=== PATIENT | female | born 1935 | race Asian ===

== ENCOUNTER 2019-06-16 13:31 | Inpatient (IN) | payer MEDICARE, BC ==
[~2019-06-16] VITALS: Ht 152.4 cm; Wt 51.3 kg
[~2019-06-16 13:31] MED LIST: AMIO200T PO; ESCI10TA PO; HYDR200T4 PO; PRED20TA PO; RIVA10TA PO
[2019-06-16] MEDS ORDERED: FENTANYL PF 100MCG/2ML AMPUL IV ONE (14:00)
[2019-06-16] MEDS ORDERED: FENTANYL PF 100MCG/2ML AMPUL ONE (14:09)
--- NOTE | 2019-06-16 14:16 | NUR ---
PT BROUGHT IN BY PARAMEDICS FOR TRIP AND FALL WHILE WALKING AND DRINKING FLUIDS. LEFT LEG NOTED TO BE BENT AND PAINFUL UPON TOUCH. LEFT LEG POSITIVE FOR SENSATION, MOTION , AND CIRCULATION. PT ON MONITOR PIV PLACED LABS DRAWN AND SAMPLES SENT TO LAB. WILL CONTINUE TO MONITOR.
[2019-06-16 14:18] LABS: BASOPHILS % (AUTO) 0.3 % (0.0-2.0); HEMATOCRIT 40 % (33-45); HEMOGLOBIN 13.4 g/dL (11.5-14.8); LYMPHOCYTES # (AUTO) 1.1 /CMM (0.8-4.8); LYMPHOCYTES % (AUTO) 9.8 % (20.0-44.0); MEAN CORPUSCULAR HGB CONC 33 g/dl (31.0-36.0); MEAN CORPUSCULAR VOLUME 94 fL (82-100); MONOCYTES # (AUTO) 0.6 /CMM (0.1-1.30); MONOCYTES % (AUTO) 5.3 % (2.0-12.0); NEUTROPHILS # (AUTO) 9.4 /CMM (1.8-8.9); NEUTROPHILS % (AUTO) 84.6 % (43.0-81.0); PLATELET COUNT (AUTO) 147 /CMM (150-450); RED BLOOD CELL COUNT(AUTO) 4.27 MIL/uL (4.0-5.2); WHITE BLOOD COUNT (AUTO) 11.1 K/uL (4.3-11.0)
[2019-06-16 14:25] LABS: CALCIUM, SERUM 8.7 mg/dL (8.5-10.1); CARBON DIOXIDE 26 mmol/L (21-32); CHLORIDE 107 mmol/L (98-107); CREATININE 0.8 mg/dL (0.6-1.3); GLUCOSE 182 mg/dL (74-106); POTASSIUM 3.7 mmol/L (3.5-5.1); SODIUM SERUM 143 mmol/L (136-145); UREA NITROGEN, BLOOD 15 mg/dL (7-18)
--- NOTE | 2019-06-16 14:35 | NUR ---
ORTHO MEDICAL RECORD CODER PAGED
[2019-06-16] MEDS ORDERED: ATOR10TA PO (14:39)
[2019-06-16] MEDS ORDERED: AMLO-555 PO (14:39)
[2019-06-16] MEDS ORDERED: RALO60TA14 PO (14:39)
[2019-06-16] MEDS ORDERED: SERT25TA5 PO (14:39)
--- NOTE | 2019-06-16 15:47 | NUR ---
RECIEVED BED 312-1
--- NOTE | 2019-06-16 15:53 | NUR ---
PT ADMITTED TO ROOM 312-1 MED/SURG UNDER BLAKE GROSS RN REPORT GIVEN TO SURINDER.
--- NOTE | 2019-06-16 16:15 | NUR ---
ADMISSION NOTE PT BROUGHT UP VIA GURNEY AT THIS TIME, A/O X3 ALBANIAN SPEAKING, BREATHING EVEN AND UNLABORED ON RA, NO S/S OF ANY DISTRESS OR PAIN AT THIS TIME. RIGHT WRIST GAUGE 20 IS PATENT AND INTACT, CAMPBELL IN PLACE AND DRAINING, NOTED TO HAVE BELONGINGS AT BEDSIDE WITH HER OWN PERSONAL BLANKET, SKIN WAS NOTED TO BE DRY AND INTACT WITH NO BRUISES OR REDNESS NOTED, SAFETY PRECAUTIONS IN PLACE, CALL LIGHT IN REACH, WILL MONITOR ACCORDINGLY
--- NOTE | 2019-06-16 16:20 | NUR ---
RN NOTE CONSENT SIGNED FOR LEFT HIP INTRAMEDULLARY RODDING BY PT LISANDRA Palafox AT THIS TIME
[2019-06-16] MEDS ORDERED: ZOLPIDEM TARTRATE 5 MG TABLET PO PRN (17:30)
[2019-06-16] MEDS ORDERED: ACETAMINOPHEN 325 MG TABLET PO PRN (17:30)
[2019-06-16] MEDS ORDERED: ONDANSETRON HCL/PF 4 MG/2 ML VIAL IVP PRN (17:30)
[2019-06-16] MEDS ORDERED: MAGNESIUM HYDROXIDE 30 ML UDC PO PRN (17:30)
[2019-06-16] MEDS ORDERED: Z GUARD REMEDY 2 OZ OINT TP PRN (17:30)
--- NOTE | 2019-06-16 18:01 | NUR ---
RN NOTE HOSPITALIST BLAKE GROSS MADE AWARE THAT PATIENT SON NIKKI Espinoza REQUESTED FOR HIS MOTHER TO RECEIVED LOVENOX SINCE PT HAS FEMUR FRACTURE, DR. GROSS MADE AWARE AND ORDER GIVEN TO GIVE LOVENOX 40 MG SC Q24 HRS BUT TO D/C TOMORROW DUE TO PLAN FOR SURGERY WEDNESDAY. ORDER IMPLEMENTED AND CARRIED OUT.
[2019-06-16] MEDS: ENOXAPARIN SODIUM 40 MG/0.4 ML DISP.SYRIN SQ SCH (18:09)
--- NOTE | 2019-06-16 18:24 | NUR ---
RN CLOSING NOTE PT IN BED AT LOWEST AND LOCKED POSITION WITH SIDE RAILS UPX2, A/O X3 BREATHING EVEN AND UNLABORED WITH NO DISTRESS OR PAIN NOTED AT THIS TIME, IV IS PATENT AND INTACT, SAFETY PRECAUTIONS IN PLACE, CALL LIGHT IN REACH, ALL NEEDS ATTENDED TO, WILL ENDORSE TO NIGHT RN FOR KEVAN.
[2019-06-16] MEDS: IV NS 0.9% 1,000 ML IV PRN (18:35)
[2019-06-16] MEDS: HYDROCODONE/APAP 5/325MG 1 EACH TABLET PO PRN (18:39)
--- NOTE | 2019-06-16 19:06 | NUR ---
CHANGE OF SHIFT REPORT Patient in bed, awake, A/O x3. Wolof speaking, son at bedside assist with translation. IVF infusing, denies pain. Plan for surgery on 06/18/19 per report. Fall precaution maintained.
[2019-06-16 19:52] LABS: CHOLESTEROL 131 mg/dL (<200); HDL CHOLESTEROL 41 mg/dL (40-60); LDL 83 mg/dL (0-99); TRIGLYCERIDES 53 mg/dL (30-150)
[2019-06-16 20:15] VITALS: BP 112/61
[2019-06-16 20:40] VITALS: BP 112/61
[2019-06-17] MEDS: HYDROCODONE/APAP 5/325MG 1 EACH TABLET PO PRN ×3 (04:02→19:21)
--- NOTE | 2019-06-17 06:27 | NUR ---
END OF SHIFT REPORT Patient in bed, awake, A/O x3. Left hip pain controlled with PRN Redmond, stable Oxygen saturation on RA. IVF infusing, burns cath to gravity with good output. Med recon informed MD. Plan for surgery Left hip fracture on Wednesday06/18/19. Fall precaution maintained.
[2019-06-17 06:47] LABS: BASOPHILS % (AUTO) 0.4 % (0.0-2.0); EOSINOPHILS % (AUTO) 0.5 % (0.0-6.0); HEMATOCRIT 36 % (33-45); HEMOGLOBIN 12.2 g/dL (11.5-14.8); LYMPHOCYTES # (AUTO) 1.2 /CMM (0.8-4.8); LYMPHOCYTES % (AUTO) 16.9 % (20.0-44.0); MEAN CORPUSCULAR HGB CONC 34 g/dl (31.0-36.0); MEAN CORPUSCULAR VOLUME 94 fL (82-100); MONOCYTES # (AUTO) 0.6 /CMM (0.1-1.30); MONOCYTES % (AUTO) 8.7 % (2.0-12.0); NEUTROPHILS # (AUTO) 5.3 /CMM (1.8-8.9); NEUTROPHILS % (AUTO) 73.5 % (43.0-81.0); PLATELET COUNT (AUTO) 121 /CMM (150-450); WHITE BLOOD COUNT (AUTO) 7.2 K/uL (4.3-11.0)
[2019-06-17 06:56] LABS: CALCIUM, SERUM 7.7 mg/dL (8.5-10.1); CREATININE 0.6 mg/dL (0.6-1.3); MAGNESIUM 2.1 mg/dL (1.8-2.4); POTASSIUM 3.6 mmol/L (3.5-5.1)
--- NOTE | 2019-06-17 07:24 | NUR ---
RN OPENING NOTE PT RECEIVED IN BED AT LOWEST AND LOCKED POSITION WITH SIDE RAILS UPX2, A/O X3 BREATHING EVEN AND UNLABORED WITH NO DISTRESS OR PAIN NOTED AT THIS TIME, IV IS PATENT AND INTACT, PLAN FOR SURGERY TOMORROW, SAFETY PRECAUTIONS IN PLACE, CALL LIGHT IN REACH, WILL MONITOR ACCORDINGLY
[2019-06-17 08:00] VITALS: BP 95/54
[2019-06-17] MEDS: IV NS 0.9% 1,000 ML IV PRN (10:02)
--- NOTE | 2019-06-17 11:13 | NUR ---
RN NOTE HOSPITALIST BLAKE GROSS MADE AWARE OF NEEDING HOME MEDICATION TO BE RECONCILED AT THIS TIME
[2019-06-17] MEDS: RALOXIFENE 60 MG TABLET PO SCH (12:25)
[2019-06-17] MEDS: HYDROXYCHLOROQUINE 200 MG TABLET PO SCH (12:25)
[2019-06-17] MEDS: SERTRALINE HCL 25 MG TABLET PO SCH (12:26)
[2019-06-17 13:32] LABS: APPEARANCE,URINE CLOUDY (CLEAR); BILIRUBIN,URINE NEGATIVE (NEGATIVE); BLOOD, URINE LARGE Ery/uL (NEGATIVE); COLOR,URINE YELLOW (YELLOW); KETONES,URINE NEGATIVE (NEGATIVE); LEUKOCYTE ESTERASE ,URINE NEGATIVE (NEGATIVE); NITRITE, URINE NEGATIVE (NEGATIVE); PROTEIN,URINE NEGATIVE (NEGATIVE); UGLUCOSE NEGATIVE (NEGATIVE); UROBILINOGEN,URINE 0.2 EU/dL (0.2)
[2019-06-17 13:45] LABS: BACTERIA,URINE Few /HPF (None Seen); RBC,URINE TOO NUMEROUS TO COUN /HPF (0-2); SQUAMOUS EPITHELIAL CELL,UR Few /HPF (None Seen)
[2019-06-17 13:46] LABS: URINE AMORPHOUS PHOSPHATES Few /HPF (None Seen)
[2019-06-17 16:00] VITALS: BP 104/39
--- NOTE | 2019-06-17 19:20 | NUR ---
CHANGE OF SHIFT REPORT Patient in bed, awake, A/O x3. Urdu speaking, son at bedside assist with translation. IVF infusing, will medicate for left hip pain. Plan for surgery on 06/18/[address] Landrum. Will d/c Lovenox after tonight dose 06/17/19, NPO MN. Fall precaution maintained.
[2019-06-17 20:00] VITALS: BP 102/54
[2019-06-17 20:36] VITALS: BP 102/54
[2019-06-17] MEDS: ATORVASTATIN 10 MG TABLET PO SCH (21:16)
[2019-06-17] MEDS: ENOXAPARIN SODIUM 40 MG/0.4 ML DISP.SYRIN SQ SCH (21:18)
[2019-06-18] MEDS: HYDROCODONE/APAP 5/325MG 1 EACH TABLET PO PRN ×2 (02:00→13:35)
[2019-06-18] MEDS: IV NS 0.9% 1,000 ML IV PRN ×2 (04:57→21:02)
--- NOTE | 2019-06-18 06:24 | NUR ---
END OF SHIFT REPORT Patient in bed, A/O x3. Left hip pain controlled with PRN Dorado. NPO Midnight. IVF maintained. Plan for surgery Left hip fracture today 06/18/[address] Landrum. Consent signed, patient consented procedure. Fall precaution maintained. Will endorse to Oncoming RN.
[2019-06-18 08:00] VITALS: BP 108/54
[2019-06-18 08:23] LABS: BASOPHILS % (AUTO) 0.4 % (0.0-2.0); HEMATOCRIT 35 % (33-45); HEMOGLOBIN 11.9 g/dL (11.5-14.8); LYMPHOCYTES # (AUTO) 1.3 /CMM (0.8-4.8); LYMPHOCYTES % (AUTO) 18.8 % (20.0-44.0); MEAN CORPUSCULAR HGB CONC 34 g/dl (31.0-36.0); MEAN CORPUSCULAR VOLUME 94 fL (82-100); MONOCYTES # (AUTO) 0.5 /CMM (0.1-1.30); NEUTROPHILS # (AUTO) 4.8 /CMM (1.8-8.9); NEUTROPHILS % (AUTO) 71.8 % (43.0-81.0); PLATELET COUNT (AUTO) 113 /CMM (150-450); RED BLOOD CELL COUNT(AUTO) 3.74 MIL/uL (4.0-5.2); WHITE BLOOD COUNT (AUTO) 6.8 K/uL (4.3-11.0)
[2019-06-18 08:44] LABS: CALCIUM, SERUM 7.7 mg/dL (8.5-10.1); CARBON DIOXIDE 24 mmol/L (21-32); CHLORIDE 109 mmol/L (98-107); CREATININE 0.5 mg/dL (0.6-1.3); GLUCOSE 106 mg/dL (74-106); POTASSIUM 3.4 mmol/L (3.5-5.1); SODIUM SERUM 143 mmol/L (136-145); UREA NITROGEN, BLOOD 8 mg/dL (7-18)
[2019-06-18 08:47] LABS: ALANINE AMINOTRANSFERASE 17 U/L (12-78); ALKALINE PHOSPHATASE 41 U/L (46-116); ASPARTATE AMINOTRANSFERASE 15 U/L (15-37); BILIRUBIN,TOTAL 0.4 mg/dL (0.2-1.0); MAGNESIUM 2.1 mg/dL (1.8-2.4); PHOSPHORUS 2.5 mg/dL (2.5-4.9); TOTAL PROTEIN, SERUM 6.1 g/dL (6.4-8.2)
[2019-06-18] MEDS: SERTRALINE HCL 25 MG TABLET PO SCH (08:54)
[2019-06-18] MEDS: RALOXIFENE 60 MG TABLET PO SCH (08:54)
[2019-06-18] MEDS: HYDROXYCHLOROQUINE 200 MG TABLET PO SCH (08:54)
[2019-06-18] MEDS ORDERED: FENTANYL PF 100MCG/2ML AMPUL ONE ×2 (09:46→11:28)
[2019-06-18] MEDS ORDERED: BUPIVACAINE 0.5 % PF 150 MG/30 ML VIAL ONE (10:34)
[2019-06-18] MEDS ORDERED: BACITRACIN 50000 UNITS/VIAL ONE (10:35)
[2019-06-18 12:37] VITALS: BP 114/68
--- NOTE | 2019-06-18 12:38 | NUR ---
patient back from surgery , alert oriented X4 , no pain no resp distress . looks comfortable . son at the bedside .vitals checked stable .
[2019-06-18] MEDS ORDERED: POTASSIUM CHLORIDE 20 MEQ TAB.PRT.SR PO ONE (14:00)
[2019-06-18 16:00] VITALS: BP 121/59
[2019-06-18] MEDS: ANCEF 1 GM/50 ML D5W IV SCH ×2 (17:06)
--- NOTE | 2019-06-18 19:15 | NUR ---
MS/RN OPENING NOTES: RECEIVED PATIENT IN BED AWAKE. A/OX3-4. AMHARIC BUT UNDERSTANDS AND SPEAKS MINIMAL ETHIOPIAN. BREATHING EVEN AND UNLABORED. NO SOB NOTED, NO S/S OF DISTRESS. NO COMPLAINS OF PAIN OR DISCOMFORT AT THIS TIME. SAFETY MEASURES IN PLACE. AT LOWEST AND LOCKED POSITION WITH SIDE RAILS UPX2, IV ON THE RIGHT WRIST #20G IS PATENT AND INTACT, INFUSING NS @ 75MLS/HR. SKIN ASSESSMENT DONE. S/P LEFT HIP INTRAMEDULLARY RODDING. DAY 0, MD TO CHANGE FIRST DRESSING. NO PHOTOS TAKEN AT THIS TIME. DRESSING IS INTACT AND DRY. SAFETY PRECAUTIONS IN PLACE, CALL LIGHT IN REACH, WILL MONITOR ACCORDINGLY AND CONTINUE PLAN OF CARE.
--- NOTE | 2019-06-18 19:30 | NUR ---
MS/RN NOTES: SKIN ASSESSMENT WAS DONE. TURNED PATIENT WITH 2 PEOPLE ASSIST, NO S/S OF REDNESS OR OPEN WOUNDS. DRESSING ON THE LEFT HIP IS DRY AND INTACT. PATIENT HAS NO COMPLAINS OF PAIN AT THIS TIME. PLACED PILLOWS FOR COMFORT. WILL CONTINUE TO MONITOR PATIENT ACCORDINGLY.
[2019-06-18 20:00] VITALS: BP 104/56
[2019-06-18 20:24] VITALS: BP 104/56
[2019-06-18] MEDS: ATORVASTATIN 10 MG TABLET PO SCH (21:02)
[2019-06-19] MEDS: HYDROCODONE/APAP 5/325MG 1 EACH TABLET PO PRN ×3 (00:59→19:31)
[2019-06-19] MEDS: ANCEF 1 GM/50 ML D5W IV SCH ×4 (01:00→10:12)
--- NOTE | 2019-06-19 01:00 | NUR ---
MS/RN NOTES: ASKED PATIENT FOR PAIN LEVEL USING K[place]ILI TRANSLATION. PER PT "YES PAIN, 7." ADMINISTERED NORCO 5MG PO TAB. TOLERATED WELL. VS STABLE. PATIENT STABLE, WILL REASSESS AND CONTINUE MONITORING PT ACCORDINGLY.
[2019-06-19 06:37] LABS: BASOPHILS % (AUTO) 0.1 % (0.0-2.0); HEMATOCRIT 30 % (33-45); HEMOGLOBIN 9.8 g/dL (11.5-14.8); LYMPHOCYTES # (AUTO) 0.9 /CMM (0.8-4.8); LYMPHOCYTES % (AUTO) 7.5 % (20.0-44.0); MEAN CORPUSCULAR HGB CONC 33 g/dl (31.0-36.0); MEAN CORPUSCULAR VOLUME 95 fL (82-100); MONOCYTES # (AUTO) 0.7 /CMM (0.1-1.30); NEUTROPHILS # (AUTO) 9.8 /CMM (1.8-8.9); NEUTROPHILS % (AUTO) 86.4 % (43.0-81.0); PLATELET COUNT (AUTO) 108 /CMM (150-450); RED BLOOD CELL COUNT(AUTO) 3.12 MIL/uL (4.0-5.2); WHITE BLOOD COUNT (AUTO) 11.3 K/uL (4.3-11.0)
[2019-06-19 06:44] LABS: ALBUMIN 2.7 g/dL (3.4-5.0); BILIRUBIN,TOTAL 0.3 mg/dL (0.2-1.0); CALCIUM, SERUM 7.7 mg/dL (8.5-10.1); CREATININE 0.6 mg/dL (0.6-1.3); MAGNESIUM 2.1 mg/dL (1.8-2.4); PHOSPHORUS 3.1 mg/dL (2.5-4.9); POTASSIUM 4.4 mmol/L (3.5-5.1); TOTAL PROTEIN, SERUM 5.6 g/dL (6.4-8.2)
--- NOTE | 2019-06-19 07:30 | NUR ---
MS/RN CLOSING NOTES: PATIENT RESTING COMFORTABLY IN BED. REMAINS A/OX3-4. NO SIGNIFICANT CHANGES IN CONDITION. CAMPBELL CATH OUTPUT OF 450ML YELLOW, CLEAR URINE. BREATHING EVEN AND UNLABORED. NO SOB NOTED, NO S/S OF DISTRESS. NO COMPLAINS OF PAIN OR DISCOMFORT AT THIS TIME. ASSISTED PATIENT IN TURNING TO PREVENT PRESSURE SORES. PLACED PILLOWS TO OFFLOAD. SAFETY MEASURES KEPT IN PLACE. AT LOWEST AND LOCKED POSITION WITH SIDE RAILS UPX2, IV ON THE RIGHT WRIST #20G IS PATENT AND INTACT, INFUSING NS @ 75MLS/HR. CALL LIGHT IN REACH, WILL ENDORSE TO DAY SHIFT NURSE FOR KEVAN.
--- NOTE | 2019-06-19 08:00 | NUR ---
m/s community health navigator: initial assessment received pt in bed awake, a/ox4; maltese speaking only. pt called her son, spoke to him over the phone and translated for her. no c/o pain at this time. instructed to call for assistance. will continue to monitor.
[2019-06-19 08:28] VITALS: BP 126/64
--- NOTE | 2019-06-19 08:30 | NUR ---
m/s planning and analysis manager: notes called nino watkins (yessenia) to clarify if lovenox okay to give with platelet of 108 and informed okay to give.
[2019-06-19] MEDS: HYDROXYCHLOROQUINE 200 MG TABLET PO SCH (08:34)
[2019-06-19] MEDS: SERTRALINE HCL 25 MG TABLET PO SCH (08:34)
[2019-06-19] MEDS ORDERED: ENOXAPARIN SODIUM 40 MG/0.4 ML DISP.SYRIN SQ SCH ×2 (09:00→19:23)
--- NOTE | 2019-06-19 09:10 | NUR ---
m/s operations research analyst: notes bedside report given to wenceslao (rn) for continuity of care.
[2019-06-19] MEDS: RALOXIFENE 60 MG TABLET PO SCH (09:15)
--- NOTE | 2019-06-19 09:30 | NUR ---
m/s tower truck driver: ortho f/u seen by nino watkins ([email or web address]) and given son's number from [place]. pt for imer ingram and tx. awaiting for juan jose. will continue to monitor. Addendum: 06/19/19 at 1046 by KASSIDY ROSA WHITE SOURER coury to change dressing tomorrow.
--- NOTE | 2019-06-19 10:18 | NUR ---
m/s workers compensation manager: notes lovenox 40mg sq given to right upper abdomen post op 24 hours as ordered.
--- NOTE | 2019-06-19 11:00 | NUR ---
m/s crib attendant: notes pt unable to tolerate p.t. tx today. will eval later this afternoon. family aware. instructed to call for assistance.
--- NOTE | 2019-06-19 12:00 | NUR ---
m/s site physician: notes family brought pt lunch, pt refused hospital food. instructed to call for assistance. will continue to monitor.
[2019-06-19] MEDS ORDERED: MORPHINE SULFATE INJ 2 MG/ML DISP.SYRIN IV PRN (14:30)
--- NOTE | 2019-06-19 14:32 | NUR ---
m/s sheep rancher: notes son called and informed that she called him to request pain med. medicated pt with norco due to 7/10 left hip pain. instructed to call for assistance.
--- NOTE | 2019-06-19 15:32 | NUR ---
m/s sales and training specialist: notes pt resting comfortable. family at bedside. no c/o pain at this time. call light within reach.
[2019-06-19 16:24] VITALS: BP 120/65
--- NOTE | 2019-06-19 17:00 | NUR ---
m/s restaurant worker: notes pt refused hospital food, family brought pt's dinner.
[2019-06-19 18:19] LABS: APPEARANCE,URINE CLEAR (CLEAR); BILIRUBIN,URINE NEGATIVE (NEGATIVE); BLOOD, URINE TRACE-INTA Ery/uL (NEGATIVE); COLOR,URINE YELLOW (YELLOW); KETONES,URINE NEGATIVE (NEGATIVE); LEUKOCYTE ESTERASE ,URINE NEGATIVE (NEGATIVE); NITRITE, URINE NEGATIVE (NEGATIVE); PH,URINE 6.5 (5.0-8.0); PROTEIN,URINE NEGATIVE (NEGATIVE); UGLUCOSE NEGATIVE (NEGATIVE); UROBILINOGEN,URINE 0.2 EU/dL (0.2)
--- NOTE | 2019-06-19 18:50 | NUR ---
m/s franchise field consultant: notes family brought more home food. no distress noted. needs attended. call light within reach. will monitor.
--- NOTE | 2019-06-19 19:10 | NUR ---
m/s manager pharmaceutical: notes bedside report given to wenceslao (rn) for continuity of care.
--- NOTE | 2019-06-19 19:15 | NUR ---
MS RN OPENING NOTES Received patient A/O x4, awake on Wen's position on bed. No complaints at this time. FC indwelling well with clear yellow urine output noted. Kept on bed clean, dry and comfortable. On fall and aspiration precautions. Call light within easy reach. Will continue to monitor accordingly.
[2019-06-19 20:00] VITALS: BP 120/65
[2019-06-19 20:20] LABS: BACTERIA,URINE Rare /HPF (None Seen); SQUAMOUS EPITHELIAL CELL,UR Rare /HPF (None Seen); WBC,URINE 0-2 /HPF (0-3)
[2019-06-19 20:55] VITALS: BP 120/56
[2019-06-19] MEDS: ATORVASTATIN 10 MG TABLET PO SCH (21:15)
--- NOTE | 2019-06-20 06:45 | NUR ---
MS RN CLOSING NOTES Patient asleep, easily awaken. On RA, no SOB/respiratory distress noted. No s/sx of discomfort noted at this time. Due meds given as ordered, no ASE noted. All nursing needs attended, no new complaints made. Kept on bed clean, dry and comfortable. On fall and aspiration precautions. Call light within easy reach. Endorsed.
[2019-06-20 07:09] LABS: BASOPHILS % (AUTO) 0.4 % (0.0-2.0); EOSINOPHILS % (AUTO) 0.7 % (0.0-6.0); HEMATOCRIT 28 % (33-45); HEMOGLOBIN 9.7 g/dL (11.5-14.8); LYMPHOCYTES # (AUTO) 1.1 /CMM (0.8-4.8); LYMPHOCYTES % (AUTO) 12.1 % (20.0-44.0); MEAN CORPUSCULAR HGB CONC 34 g/dl (31.0-36.0); MEAN CORPUSCULAR VOLUME 94 fL (82-100); MONOCYTES # (AUTO) 0.7 /CMM (0.1-1.30); MONOCYTES % (AUTO) 7.9 % (2.0-12.0); NEUTROPHILS # (AUTO) 7.2 /CMM (1.8-8.9); NEUTROPHILS % (AUTO) 78.9 % (43.0-81.0); PLATELET COUNT (AUTO) 122 /CMM (150-450); RED BLOOD CELL COUNT(AUTO) 3.02 MIL/uL (4.0-5.2); WHITE BLOOD COUNT (AUTO) 9.1 K/uL (4.3-11.0)
[2019-06-20 07:24] LABS: CALCIUM, SERUM 7.3 mg/dL (8.5-10.1); CARBON DIOXIDE 26 mmol/L (21-32); CHLORIDE 108 mmol/L (98-107); CREATININE 0.5 mg/dL (0.6-1.3); GLUCOSE 141 mg/dL (74-106); MAGNESIUM 1.9 mg/dL (1.8-2.4); PHOSPHORUS 1.9 mg/dL (2.5-4.9); POTASSIUM 3.5 mmol/L (3.5-5.1); SODIUM SERUM 142 mmol/L (136-145); UREA NITROGEN, BLOOD 11 mg/dL (7-18)
--- NOTE | 2019-06-20 08:00 | NUR ---
m/s ferryboat operator cable: initial assessment received pt in bed awake, a/ox4; faroese speaking only. left hip dressing intact, clean, and dry. no c/o pain at this time. instructed to call for assistance. will continue to monitor.
[2019-06-20 08:23] VITALS: BP 120/60
[2019-06-20] MEDS: RALOXIFENE 60 MG TABLET PO SCH (08:27)
[2019-06-20] MEDS: HYDROXYCHLOROQUINE 200 MG TABLET PO SCH (08:28)
[2019-06-20] MEDS: SERTRALINE HCL 25 MG TABLET PO SCH (08:28)
--- NOTE | 2019-06-20 08:50 | NUR ---
m/s formula room worker: md visit seen and examined by dr. angel at this time.
[2019-06-20] MEDS: HYDROCODONE/APAP 5/325MG 1 EACH TABLET PO PRN ×2 (09:34→17:36)
--- NOTE | 2019-06-20 09:34 | NUR ---
m/s psychology lecturer: notes norco 1 tab po given prior to p.t. tx.
--- NOTE | 2019-06-20 10:27 | NUR ---
m/s golf cart maker: notes son called to translate to pt re: f/c dc'd. pt verbalized understanding. f/c removed as ordered, lauren. well. instructed to call for assistance. call light within reach.
--- NOTE | 2019-06-20 10:40 | NUR ---
m/s set up and charger: notes up with p.t. for eval and tx at this time.
--- NOTE | 2019-06-20 13:45 | NUR ---
m/s mud plant operator: notes resting comfortable in bed. no distress noted. will continue to monitor.
--- NOTE | 2019-06-20 15:45 | NUR ---
m/s production manager: notes pt for d'c planning to [facility] today per cn. awaiting order from dr. angel. tms (medication reconciliation) done by . case management to make arrangement and call family.
--- NOTE | 2019-06-20 16:00 | NUR ---
m/s paper products inspector: notes ti (son, dpoa) notified and made aware re: d'c planning today at [facility]. call transfer to hardy (case management). pt made aware. incontinent care of bladder and bowel rendered. will continue to monitor.
[2019-06-20 16:03] VITALS: BP 125/60
--- NOTE | 2019-06-20 16:45 | NUR ---
m/s embedded systems developer: notes report given to bola (rn) at [facility] for continuity of care. pt for sheepskin pickler at 1830. pt aware.
[2019-06-20] MEDS ORDERED: K PHOS NEUTRAL 250 MG TABLET PO ONE (17:30)
--- NOTE | 2019-06-20 17:36 | NUR ---
m/s adolescent counselor: notes medicated with norco 5/325 1 tab po prior to d'c to [facility]. son at bedside and will bring all her belongings.
--- NOTE | 2019-06-20 18:08 | NUR ---
m/s editing computer publisher: notes f/u made to dr. angel re: d'c order to [facility], spoke to him over the phone thru exchange, stated, "i will put the order now."
--- NOTE | 2019-06-20 18:15 | NUR ---
m/s interventional tech: notes discharge instructions given to fortino (son) and translated all d'c instructions to pt. pt and son verbalized understanding. ambulance called and will be an hour late. pt and son made aware. all d'c papers given to son.
--- NOTE | 2019-06-20 18:36 | NUR ---
m/s wood and wood products factory worker: notes son remains at bedside. pt resting comfortable. will continue to monitor.
--- NOTE | 2019-06-20 19:00 | NUR ---
m/s gas station attendant: notes bedside report given to ravinder (radha) for continuity of care. awaiting for ambulance to pick her up. son remains at bedside.
--- NOTE | 2019-06-20 19:10 | NUR ---
m/s network security administrator: notes h/l removed with tip intact. son remains at bedside. will continue to monitor.
--- NOTE | 2019-06-20 19:25 | NUR ---
m/s primer press operator: notes ambulance here and report given to one of the crew.
--- NOTE | 2019-06-20 19:40 | NUR ---
MS/RUGBY LEAGUE FOOTBALLER NOTES: RECEIVED PATIENT IN STABLE CONDITION. REPORT GIVEN BY KASSIDY, NURSE FROM JUAN DIEGOMAREYMUNDO TO JUANIS, AND EMT DARIUS. VS STABLE. PATIENT WAS CHANGED. PATIENT LEFT THE UNIT IN STABLE CONDITION.
== END 2019-06-20 18:30 | DRG 482 ==
LOC: ER 13:32 → MED 15:49
PROVIDERS: ADMIT Nurse Practitioner Acute Care; ATTEND Internal Medicine
PROC: 0QS706Z Reposition Left Upper Femur with Intramedullary Internal Fixation Device, Open Approach (ICD-10-PCS; principal; 2019-06-18)
DX: M80.052A Age-related osteoporosis with current pathological fracture, left femur, initial encounter for fracture (principal); W10.9XXA Fall (on) (from) unspecified stairs and steps, initial encounter; I10 Essential (primary) hypertension; Y92.009 Unspecified place in unspecified non-institutional (private) residence as the place of occurrence of the external cause; Z79.01 Long term (current) use of anticoagulants; D72.829 Elevated white blood cell count, unspecified; R79.89 Other specified abnormal findings of blood chemistry; M32.9 Systemic lupus erythematosus, unspecified
CPT/HCPCS: 36415; 71045-TC; 73502; 80048-TC; 80053-TC; 80061-TC; 81000-TC; 83735-TC; 84100-TC; 85025-TC; 85730-TC; 86850-TC; 87081-TC; 93307-TC; 97110-TC; 97112-TC; 97116-TC; 97530-TC; A6209; C1713; G0378; J0690; J1100; J1650; J1885; J2270; J2405; J2704; J3010; J3490; J7030; J7060